=== PATIENT | female | born 1960 | race Caucasian/White ===

== ENCOUNTER 2019-09-11 22:25 | Emergency (ER) | payer SELFPAY ==
[~2019-09-11] VITALS: Ht 162.6 cm; Wt 71.0 kg
[~2019-09-11 22:25] MED LIST: ASPI-1094 PO; ATOR40TA PO; CALC-793 PO; CARV3.12 PO; CLOP75TA8 PO; NITR0.4T51 SL; PANT40TA39 PO
[2019-09-11 22:53] LABS: BASOPHILS # (AUTO) 0.2 X10'3 (0-0.2); BASOPHILS % (AUTO) 1.4 % (0-1); EOSINOPHILS # (AUTO) 0.4 X10'3 (0-0.9); HEMATOCRIT 38.5 % (35.0-45.0); LYMPHOCYTES # (AUTO) 5.1 X10'3 (1.1-4.8); LYMPHOCYTES % (AUTO) 47.2 % (21-51); MEAN CORPUSCULAR HEMOGLOBIN 32.7 PG (27.0-31.0); MEAN CORPUSCULAR HGB CONC 33.9 g/dL (33.0-36.5); MEAN CORPUSCULAR VOLUME 96.5 FL (78-98); MEAN PLATELET VOLUME 8.7 FL (7.4-10.4); MONOCYTES # (AUTO) 1.3 X10'3 (0-0.9); NEUTROPHILS # (AUTO) 3.8 X10'3 (1.8-7.7); NEUTROPHILS % (AUTO) 35.4 % (42-75); PLATELET COUNT 304 X10'3 (140-440); RED BLOOD COUNT 3.99 X10'6 (4.20-5.60); RED CELL DISTRIBUTION WIDTH 13.9 % (11.5-14.5); WHITE BLOOD COUNT 10.8 X10'3 (4.5-11.0)
[2019-09-11 23:07] LABS: ALANINE AMINOTRANSFERASE 20 U/L (12-78); ALBUMIN 3.5 G/DL (3.4-5.0); ALBUMIN/GLOBULIN RATIO 0.9 (1.1-1.5); ALKALINE PHOSPHATASE 88 IU/L (46-116); ANION GAP 9 (8-16); ASPARTATE AMINO TRANSFERASE 22 U/L (10-37); BILIRUBIN,TOTAL 0.4 MG/DL (0.1-1.0); BLOOD UREA NITROGEN 10 MG/DL (7-18); BUN/CREATININE RATIO 9.1 (6.6-38.0); CALCIUM 8.9 MG/DL (8.5-10.1); CHLORIDE 107 MMOL/L (99-107); GLUCOSE 111 MG/DL (70-104); SODIUM 142 MMOL/L (135-145); TOTAL CARBON DIOXIDE 26.4 MMOL/L (24-32); TOTAL PROTEIN 7.6 G/DL (6.4-8.2); eGFR 51 ML/MIN
[2019-09-11 23:43] LABS: PARTIAL THROMBOPLASTIN TIME 29 SECONDS (22-32)
[2019-09-12] MEDS ORDERED: iohexol 350MG/ML 100ml bottle IV ONE (00:05)
[2019-09-12] MEDS ORDERED: TRAZ-251 (00:19)
[2019-09-12] MEDS ORDERED: RANO500T5 (00:19)
[2019-09-12] MEDS ORDERED: sucralfate 1gm/10ml UD suspension PO SCH (00:20)
[2019-09-12] MEDS ORDERED: LIDOcaine Viscous 15ml cup MM PRN (00:20)
[2019-09-12] MEDS ORDERED: pantoprazole 40 MG vial IV ONE (00:20)
[2019-09-12] MEDS ORDERED: mag hydrox/Alum hydrox/simeth 30ml oral suspension PO ONE (00:20)
[2019-09-12] MEDS ORDERED: famotidine/PF 10 mg/ml inj IV ONE (00:20)
[2019-09-12 01:31] VITALS: BP 121/60
== END 2019-09-12 01:33 | disposition home or self-care (01) ==
LOC: ER 22:25
DX: R07.89 Other chest pain (principal); R10.13 Epigastric pain; R42 Dizziness and giddiness; E78.00 Pure hypercholesterolemia, unspecified; I10 Essential (primary) hypertension; K21.9 Gastro-esophageal reflux disease without esophagitis; F17.200 Nicotine dependence, unspecified, uncomplicated; Z90.710 Acquired absence of both cervix and uterus; Z98.62 Peripheral vascular angioplasty status; Z79.82 Long term (current) use of aspirin
CPT/HCPCS: 36415; 71045; 71275; 80053; 84484; 85025; 85379; 85610; 85730; 93005; 96374; 96375; 99285; C9113; J3490; Q9967

== ENCOUNTER 2024-08-22 15:31 | Outpatient (CLI) | payer MEDICARE, MEDICAID ==
[~2024-08-22] VITALS: Ht 162.6 cm; Wt 64.4 kg
[~2024-08-22 15:31] MED LIST changes: +CLOP-32 PO; -CLOP75TA8 PO; +RANO500T6; +TRAZ-251
[2024-08-22 16:01] LABS: ABG HCO3 25.7 mmol/L (21.0-28.0); ABG OXYGEN SATURATION 95.2 % (94.0-98.0); ABG PCO2 (T) 41.3 mmHg (32.0-45.0); ABG PH (T) 7.412 (7.350-7.450); ABG PO2 (T) 77.5 mmHg (83.0-108.0); FCOHb 3.3 % (0.5-1.5); FHHb 4.6 % (0.0-5.0); FO2Hb 92.1 % (94.0-98.0); MODE ROOM AIR; TOTAL HEMOGLOBIN 13.5 G/dl (12.0-16.0)
[2024-08-22] MEDS: albuterol 2.5 MG/3 ML nebule NEB ONE (16:41)
[2024-08-22 16:44] VITALS: PULSE 70; RESP 16; O2SAT 93
[2024-08-22 17:04] VITALS: PULSE 69; RESP 15
== END 2024-08-22 23:59 | disposition home or self-care (01) ==
LOC: RT 15:31
PROVIDERS: ATTEND Surgery
DX: R91.1 Solitary pulmonary nodule (principal); J98.4 Other disorders of lung
CPT/HCPCS: 36600; 82803; 85018; 94060; 94727; 94729; 94760

== ENCOUNTER 2025-03-13 08:13 | Outpatient (CLI) | payer MEDICARE, MEDICAID ==
[2025-03-12 15:36] LABS: CREATININE 1.42 MG/DL (0.40-0.90); TOTAL CARBON DIOXIDE 28.5 MMOL/L (24-32); eGFR 37 ML/MIN
[~2025-03-13 08:13] MED LIST changes: +ALBU18HF2 INH; +ALEN70TA31 PO; +ANAS1TAB24 PO; +ASPI-103 PO; -ASPI-1094 PO; -CALC-793 PO; +CARV12.53 PO; -CARV3.12 PO; +CHOL50004 PO; +FENO48TA10 PO; +LORA10TA7 PO; -RANO500T6; +RANO500T6 PO; -TRAZ-251
[2025-03-13] MEDS ORDERED: iohexol 300mg/ml 100ml inj. ONE (08:35)
--- NOTE | 2025-03-13 10:30 | RADIOLOGY REPORT ---
Procedure: CT CT CHEST W/ IV CONTRAST 03/13/2025 08:44 AM History: 65 years old, Female; MALIGNANT NEOPLASM OF UPPER LOBE, RIGHT BRONCHUS. Comparison: CT CT CHEST W/ IV CONTRAST on DOS: 08/31/24, CTA CHEST on DOS: 09/12/19 Technique: After the uneventful administration of contrast intravenously, CT imaging was performed th rough the chest. Coronal and sagittal reformations were performed by the technologist. Radiation Dose : CT Dose: CTDI volume is 13.5 mGy. Dose-length product is 446.9 mGy*cm Findings: Lower neck: Normal thyroid. Lungs: Postsurgical changes in the right upper lobe. Increasing 1.4 cm nodule in the right lower lobe, image 38. Heart/Vascular Structures: Cardiomegaly. Coronary artery calcifications. Vascular calcifications of t he aorta. Severe coronary artery disease. Lymph Nodes: No adenopathy Pleura: No pleural effusion or significant pneumothorax. Musculoskeletal: No acute osseous abnormality. Soft tissues: Normal. Upper abdomen: Limited portions of the upper abdomen are unremarkable. IMPRESSION: Increasing 1.4 cm nodule in the right lower lobe, image 38. Severe coronary artery disease. Hepatic steatosis.
== END 2025-03-13 23:59 | disposition home or self-care (01) ==
LOC: 64 CT 08:13
PROVIDERS: ATTEND Surgery
DX: C34.11 Malignant neoplasm of upper lobe, right bronchus or lung (principal); R91.1 Solitary pulmonary nodule; I51.7 Cardiomegaly; K76.0 Fatty (change of) liver, not elsewhere classified
CPT/HCPCS: 36415; 71260; 80048; Q9967

== ENCOUNTER 2025-03-22 07:08 | Day surgery (SDC) | payer MEDICARE, MEDICAID ==
--- NOTE | 2025-03-18 14:46 | ELECTROCARDIOGRAPH REPORT ---
[facility] Test Date: 2025-03-18 Test Time: 14:44:11 Pat Name: KIP COLLINS Department: [facility]-PRE-OP Patient ID: [id number] Room: Gender: F Group Home Manager: ARUN : 1960 Requested By: IVON SANZ Order Number: [id number] Reading MD: Dr. GILLIAN Leon Measurements Intervals [place] Rate: 59 P: 57 [place]: 149 QRS: 19 QRSD: 96 T: 35 QT: 473 QTc: 469 Interpretive Statements Sinus bradycardia Borderline repol abnrm, anterolateral leads Electronically Signed On 03-18-2025 16:40:[address] GILLIAN Leon Please click the below link to view image of tracing.
[2025-03-18 14:58] LABS: MEAN PLATELET VOLUME 8.9 FL (7.4-10.4); PRE OP HEMATOCRIT 36.6 % (35.0-45.0); PRE OP HEMOGLOBIN 11.9 g/dL (12.0-16.0); PRE OP PLATELET COUNT 373 X10'3 (140-440); PRE OP WHITE BLOOD COUNT 9.1 10'3 (4.8-10.8); RED CELL DISTRIBUTION WIDTH 15.6 % (11.5-14.5)
[2025-03-18 15:20] LABS: CREATININE 1.25 MG/DL (0.40-0.90); PRE OP ALT 25 U/L (30-65); PRE OP ANION GAP 9 (8-16); PRE OP AST 23 U/L (10-37); PRE OP BILIRUB, TOTAL 0.3 MG/DL (0.0-1.0); PRE OP GLUCOSE 94 MG/DL (70-104); PRE OP POTASSIUM 3.8 MMOL/L (3.4-5.1); PRE OP SODIUM 145 MMOL/L (135-145); TOTAL CARBON DIOXIDE 28.5 MMOL/L (24-32); eGFR 43 ML/MIN
--- NOTE | 2025-03-18 15:48 | RADIOLOGY REPORT ---
EXAM: CT CT CHEST ION INDICATION: LUNG MASS TECHNIQUE: Noncontrast axial images of the chest have been obtained along with coronal and sagittal r eformatted images. All CT scans at this facility use dose modulation, iterative reconstruction, and/o r weight based dosing when appropriate to reduce radiation dose to as low as reasonably achievable. COMPARISON: CT CT CHEST W/ IV CONTRAST on DOS: 03/13/25 FINDINGS: LOWER NECK: Unremarkable LYMPH NODES/MEDIASTINUM: No abnormal lymph nodes by CT size criteria CARDIOVASCULAR: Normal cardiac size. Trace pericardial fluid. No aneurysmal dilatation of the great v essels. Coronary artery calcifications. Slight worsening of pericardial lipomatosis. UPPER ABDOMEN: Unremarkable. MUSCULOSKELETAL: No acute fracture or aggressive focal osseous lesion. Multilevel degenerative change of the visualized spine. CHEST WALL: Post treatment changes related to right-sided mastectomy LUNG PARENCHYMA/PLEURAL SPACE: No pleural effusion or pneumothorax. Abnormal paraseptal pulmonary nod ule oval-shaped measuring 21 x 10 mm in the superior segment, right lower lobe (axial 213). Upon comp arison with prior examination dated 08/31/24, imaging findings have significantly progressed concerning for malignancy. Pleural-parenchymal scarring in the right upper lobe. Areas of presumed lobular air trapping particularly in the right lower lobe. Pleural-parenchymal areas of scarring. IMPRESSION: 1. Abnormal paraseptal pulmonary nodule oval-shaped measuring 21 x 10 mm in the superior segment, rig ht lower lobe. Upon comparison with prior examination dated 08/31/24, imaging findings have significant ly progressed concerning for malignancy. 2. No measurable suspicious lymphadenopathy
[2025-03-22] VITALS (7 sets, daily range): BP systolic 124–157; BP diastolic 58–76; PULSE 58–67; RESP 12–25; TEMP 97.8; O2SAT 94–97
[~2025-03-22] VITALS: Ht 165.1 cm; Wt 77.0 kg
[2025-03-22] MEDS: DOCUMENT DATE & TIME OF BETA-BLOCKER PO ONE (05:15)
[~2025-03-22 07:08] MED LIST changes: -ANAS1TAB24 PO
[2025-03-22] MEDS ORDERED: HYDROmorphone/PF 0.2 MG/ML SYRINGE IV PRN ×2 (08:10)
[2025-03-22] MEDS ORDERED: acetaminophen 1,000mg/100ml IV 100 ML IV PRN (08:10)
[2025-03-22] MEDS ORDERED: morphine 4 MG/ML inj SYRINge IV PRN (08:10)
[2025-03-22] MEDS ORDERED: ondansetron/PF 4mg/2ml inj IV PRN (08:10)
[2025-03-22] MEDS ORDERED: hydrALAZINE 20mg/ml inj. IV PRN (08:10)
[2025-03-22] MEDS ORDERED: ringers solution, lacted 1,000 ML IV SCH (08:10)
[2025-03-22] MEDS ORDERED: labetalol 20mg/4ml (5mg/ml) syringe IV PRN (08:10)
[2025-03-22] MEDS: ringers solution, lacted 1,000 ML IV SCH (08:24)
[2025-03-22] MEDS ORDERED: fentaNYL/PF 50MCG/1 ML 2ML syringe ONE (09:48)
[2025-03-22] MEDS ORDERED: ePHEDrine 50MG/ML INJ. ONE (10:03)
[2025-03-22] MEDS ORDERED: LIDOcaine 2% (20mg/ml) 5ml vial ONE (10:10)
[2025-03-22] MEDS ORDERED: propofol inj 20 ML IV ONE (10:10)
[2025-03-22] MEDS ORDERED: midazolam 1 mg/ML 2ml injection ONE (10:10)
[2025-03-22] MEDS ORDERED: dexamethasone sod phosphate 4mg/ml inj. ONE (10:10)
[2025-03-22] MEDS ORDERED: rocuronium 10mg/ml inj IV ONE (10:10)
[2025-03-22] MEDS ORDERED: ondansetron/PF 4mg/2ml inj ONE (10:10)
[2025-03-22] MEDS ORDERED: glycopyrrolate 0.2mg/ml inj ONE (10:11)
--- NOTE | 2025-03-22 16:30 | OPERATIVE REPORT ---
DATE OF SURGERY: 03/22/2025 DICTATING PHYSICIAN: Juanjo Lemus MD PROCEDURE: Bronchoscopy INDICATIONS: The patient with new right lower lobe mass. She had a lobectomy from a previous cancer on the same site. POSTOPERATIVE DIAGNOSES: The patient with new right lower lobe mass. She had a lobectomy from a previous cancer on the same site. DESCRIPTION OF PROCEDURE: The patient signed the consent after indications, potential complications were explained. We already had a planning for the procedure with a mass labeled with a robot microscopy system, navigated a catheter into it and then pulled out the wire and also with a camera in it and tried to confirm the location of the catheter with radial ultrasound and it was not on the center. I tried to maneuver the catheter to see if we could get it to the center of the mass. I could not do it, so I decided to go ahead and do a CT scan of the bedside with a cone beam CT scanner. We did that and we recalibrated the area and I was able to get multiple samples. I realized that I was in the middle of the mass with the CT scan. I obtained about 5 different passes and then we switched over to the IVUS. There were some paratracheal lymph nodes about a centimeter in size over a sample on zone 7, 10R and 10L. Then we already had done a BAL on the left side and did suctioning on both sides to keep the blood to minimum and the clots at the minimum in the airway. No complications. The patient tolerated the procedure well. Juanjo Lemus MD TID: [id number] RECEIPT: [id number] MEGHAN/MARY/VALERY
--- NOTE | 2025-03-26 15:52 | PATHOLOGY REPORT ---
[facility] [address] [place] [address] [employer] CYTOLOGY REPORT CaseNumber: [id number] Surgeon:Juanjo Lemus M.D. CLINICAL INFORMATION CLINICAL INFORMATION: Pt has a history of well-differentiated invasive ductal carcinoma of the breast (2019) and poorly differentiated adenocarcinoma of the lung (2024, s/p lobectomy). A right lung mass is reported; irregular 17 mm nodule within the posterior right upper lobe, new since 07/03/2024. (mk ) DIAGNOSIS DIAGNOSIS: A.LUNG, RIGHT LOWER LOBE; FINE NEEDLE ASPIRATION - SPARSE MIXED INFLAMMATION. - RARE REACTIVE BRONCHIAL EPITHLEIUM. DIAGNOSIS: B.LUNG, RIGHT LOWER LOBE; BIOPSY - REACTIVE BRONCHIAL AND ALVEOLAR LUNG TISSUE. - NEGATIVE FOR MALIGNANT CELLS. DIAGNOSIS: C.LYMPH NODE, 7, 10R, 10L; FINE NEEDLE ASPIRATION - BENIGN LYMPHOID TISSUE. - FOAMY MACROPAHGES AND FOCAL ACUTE INFLAMMATION. - NEGATIVE FOR MALIGNANT CELLS. MICROSCOPIC DESCRIPTION A. LUNG, RIGHT LOWER LOBE MICROSCOPIC DESCRIPTION: The cellblock shows predominately serum with sparse mixed inflammation compo sed of foamy macrophages, lymphocytes, and rare neutrophils. Rare fragments of reactive bronchial epi thelium with terminal cilia, are noted. I see no evidence of malignant cells. The double cytospin sli de shows acellular material. B. LUNG, RIGHT LOWER LOBE MICROSCOPIC DESCRIPTION: The H&E slide shows a fragment of reactive bronchial epithelium and alveolar lung tissue, in a background of blood. There is mildly increased numbers of interalveolar foamy macr ophages, and interstitial lymphocytes. Significant acute inflammation is not appreciated. Malignant c ells are not identified. There is patchy anthracotic pigment. C. LYMPH NODE, 7, 10R, 10L MICROSCOPIC DESCRIPTION: The H&E cell block and double cytospin slide show fragments of benign lympho id tissue with anthracotic pigment. The background shows scattered reactive bronchial epithelial cell s with mild nucleomegaly and terminal cilia. I do not see evidence of malignant cells. Numerous foamy macropahges are present, and there are focal clusters of neutrophils. GROSS DESCRIPTION A. LUNG, RIGHT LOWER LOBE GROSS DESCRIPTION: Received labeled with the patient's name, number, and "FNA RLL" is a 12.5 mL bottl e of slightly cloudy cytostat red. One double cytospin slide and one cell block are prepared. The randy l block is submitted as A1. The time at which the specimen is removed is not provided. The time at which the specimen is placed in formalin is not provided. (cs) bharath B. LUNG, RIGHT LOWER LOBE GROSS DESCRIPTION: Received in a container of formalin labeled with the patient's name, number, and " BX RUL "is a 0.5 x 0.3 x 0.2 cm aggregate of irregularly shaped pieces of pink-bragg tissue submitted e ntirely as B1.The time at which the specimen was removed was not provided. The time at which the spec imen was placed in formalin was not provided. C. LYMPH NODE, 7, 10R, 10L GROSS DESCRIPTION: Received labeled with the patient's name, number, and "7, 10R, 10L" is a 15 mL bot tle of clear cytostat red. One double cytospin slide and one cell block are prepared. The cell block is submitted as C1. The time at which the specimen is removed is not provided. The time at which th e specimen is placed in formalin is not provided. (cs) Electronically signed by: Houston Partida, 03/26/2025 3:16:00 PM
== END 2025-03-22 11:52 | disposition home or self-care (01) ==
LOC: PAS 07:08
PROVIDERS: ATTEND Internal Medicine Critical Care Medicine
DX: R22.2 Localized swelling, mass and lump, trunk (principal); I10 Essential (primary) hypertension; I25.119 Atherosclerotic heart disease of native coronary artery with unspecified angina pectoris; E78.5 Hyperlipidemia, unspecified; K21.9 Gastro-esophageal reflux disease without esophagitis; I25.2 Old myocardial infarction; Z87.891 Personal history of nicotine dependence; Z79.899 Other long term (current) drug therapy; Z90.11 Acquired absence of right breast and nipple; Z90.49 Acquired absence of other specified parts of digestive tract; Z98.49 Cataract extraction status, unspecified eye; Z95.818 Presence of other cardiac implants and grafts; Z98.51 Tubal ligation status; Z98.890 Other specified postprocedural states; Z88.8 Allergy status to other drugs, medicaments and biological substances
CPT/HCPCS: 31624; 31627; 31628; 31629; 31653; 36415; 71250; 80053; 82948; 85025; 87015; 87070; 87116; 87206; 88173; 88305; 93005; 94760; A4618; J1100; J2003; J2250; J2405; J2704; J2710; J3010; J3490; J7120; Z7506; Z7508; Z7512; Z7610; 31622; 31625; 31626; 31654